=== PATIENT | male | born 1950 | race Caucasian/White ===

== ENCOUNTER 2024-05-10 21:32 | Emergency (ER) | payer MEDICARE, BC ==
[2024-05-10] VITALS (10 sets, daily range): BP systolic 119–175; BP diastolic 60–82
[~2024-05-10] VITALS: Ht 172.7 cm; Wt 74.6 kg
[~2024-05-10 21:32] MED LIST: ACTOS30 MG OR; AMOX/K CLAV875 M1 PO; AMOXICILLIN500 MG PO; ASPIRIN81 MG PO; B-121000 MCG SL; BACTRIM DS1 TAB PO; C 250 PO; CINNAMON500 M1 PO; CITALOPRAM20 MG PO; COZAAR100 MG PO; DIOVAN80 MG OR; FISH OIL1000 MG PO; GLIPIZIDE ER5 M1 OR; JANUVIA100 MG OR; JANUVIA50 MG PO; LANTUS100 MG/ML SC; LOVASTATIN40 M1 OR; LOVASTATIN40 M1 PO; MEDDOSEPAK PO; METFORMIN HCL1000 MG PO; METFORMIN500 M2 PO; NAPROSYN500 MG PO; NAPROXEN250 MG PO; NITRO PUMP; NORCO1 TA1 PO; OMEGA OR; PEPCID20 MG PO; PLAVIX75 MG PO; PROTONIX40 MG PO; SANTYL250 MG/GM EX; SILVADENE1 % EX; TENORMIN PO; VIAGRA100 MG OR; VIAGRA100 MG PO; VITAMIN C500 M2 OR; [UNRECOGNIZED DRUG - OTHER]
[2024-05-10] MEDS ORDERED: PROMETHAZINE HCL 25 MG/ML AMP IV ONE (21:45)
[2024-05-10] MEDS ORDERED: MORPHINE SULFATE 4 MG/ML VIAL IV ONE (21:45)
[2024-05-10] MEDS ORDERED: IPRATROPIUM-Albuterol 0.5MG-2.5MG/3 ML NEB ONE (21:45)
[2024-05-10] MEDS ORDERED: methylPREDNISolone SODIUM SUCC 125 MG/2 ML SDV IV ONE (21:45)
[2024-05-10] MEDS ORDERED: KETOROLAC TROMETHAMINE 30 MG/ML SDV IV ONE (21:45)
[2024-05-10] MEDS ORDERED: SODIUM CHLORIDE 0.9% 1,000 ML IV ONE (21:45)
[2024-05-10 22:05] LABS: BASO% 0.3 % (0-3); EOS% 0.5 % (0-8); HEMOGLOBIN 16.4 g/dl (14.0-18.0); IMMATURE GRANULOCYTES 0.1 % (0.0-5.0); LYMPH% 11.7 % (15-41); MEAN CELL VOLUME 89.5 fL CALC (80.0-100.0); MEAN CORPUSCULAR HGB 29.7 pG CALC (26.0-32.0); MEAN CORPUSCULAR HGB CONC 33.1 g/dL CAL (32.0-36.0); MONO% 9.6 % (2-13); NEUT# 7.6 thou/uL (1.82-7.42); NEUT% 77.8 % (42-76); RED BLOOD COUNT 5.53 mill/uL (4.70-6.10); RED CELL DISTRI WIDTH 13.2 % (11.5-15.5)
[2024-05-10 22:07] LABS: HEMATOCRIT 49.5 % (39.0-50.0)
[2024-05-10 22:16] LABS: ALBUMIN 4.7 g/dL (3.2-5.0); BILIRUBIN, TOTAL 1.1 mg/dL (0.2-1.3); CREATININE 1.3 mg/dL (0.7-1.3); POTASSIUM 4.5 mmol/l (3.5-5.1); TOTAL PROTEIN 7.8 g/dL (6.3-8.2)
[2024-05-10] MEDS ORDERED: TYLENOL # 31 TA1 PO (23:08)
[2024-05-11 00:12] VITALS: BP 119/60
== END 2024-05-11 00:12 | disposition home or self-care (01) ==
LOC: ED 21:32
PROVIDERS: Family Medicine
DX: S20.211A Contusion of right front wall of thorax, initial encounter (principal); J98.01 Acute bronchospasm; E11.9 Type 2 diabetes mellitus without complications; I10 Essential (primary) hypertension; F17.200 Nicotine dependence, unspecified, uncomplicated; W01.0XXA Fall on same level from slipping, tripping and stumbling without subsequent striking against object, initial encounter; Y92.821 Forest as the place of occurrence of the external cause; Z95.5 Presence of coronary angioplasty implant and graft